=== PATIENT | male | born 1955 | race Caucasian/White ===

== ENCOUNTER 2019-02-28 08:17 | Emergency (ER) | payer BC, OTHER ==
[2019-02-28] MEDS ORDERED: ANTIVENIN,CROTALIDAE FAB(OVIN) INJ 1 VIAL IV ONE (08:37)
[2019-02-28] MEDS ORDERED: NORMAL SALINE 1000 ML 1,000 ML IV ONE (08:37)
[2019-02-28] MEDS ORDERED: TETANUS/DIPHTHERIA TOX-ADULT 0.5 ML SYR (>=7YO) IM ONE (08:37)
--- NOTE | 2019-02-28 08:53 | ER Document Report ---
ED General - General Chief Complaint: Snake Bite Stated Complaint: POSSIBLE SNAKE BITE Time Seen by Provider: 02/28/19 08:37 Primary Care Provider: BLAS GALLO MD [ACTIVE STAFF] - Follow up in 3-5 days TRAVEL OUTSIDE OF THE [place] IN LAST 30 DAYS: No - HPI Notes: Patient is a 63-year-old male that presents to the emergency department for chief complaint of copperhead bite to right ankle. Patient reports [place] and stepping on a copperhead. He states it appeared to be 2 to 2-1/2 feet in length. He states he has lived in the area his whole life and is sure it was a copperhead. He did kill the snake but did not bring it into the emergency room. Patient is complaining of a burning pain on the lateral aspect of his right ankle. He denies feeling lightheaded, nauseated or having any paresthesias and numbness. Patient denies history of bleeding disorders in the past and is not on any blood thinning medications. He has not done anything to the wound or taken any medication prior to coming to the emergency room. The bite occured at about 0800 this morning. Past Medical History: Hypertension Past Surgical History: Negative Social History: Occasional alcohol. Denies tobacco and drug use Family History: Reviewed and noncontributory for presenting illness Allergies: Reviewed, see documented allergy list. REVIEW OF SYSTEMS: CONSTITUTIONAL : No fever No chills No diaphoresis No recent illness EENT: No vision changes No congestion No sore throat CARDIOVASCULAR: No chest pain No palpitations RESPIRATORY: No shortness of breath No cough No difficulty breathing GASTROINTESTINAL: No abdominal pain No nausea No vomiting No diarrhea GENITOURINARY: No dysuria No hematuria No difficulty urinating MUSCULOSKELETAL: No back pain No leg pain No arm pain SKIN: No rashes Right ankle lesions LYMPHATIC: No swollen, enlarged glands. NEUROLOGICAL: No lightheadedness No headache No weakness No paresthesias PSYCHIATRIC: No anxiety No depression PHYSICAL EXAMINATION: Vital signs reviewed, nursing noted reviewed. GENERAL: Appears uncomfortable, well-nourished and in no acute distress. HEAD: Atraumatic, normocephalic. EYES: Eyes appear normal, extraocular movements intact, sclera anicteric, conjunctiva are normal. ENT: nares patent, oropharynx clear without exudates. Moist mucous membranes. NECK: Normal range of motion, supple without lymphadenopathy LUNGS: Breath sounds clear to auscultation bilaterally and equal. No wheezes rales or rhonchi. HEART: Tachycardic rate and regular rhythm without murmurs ABDOMEN: Soft, nontender, normoactive bowel sounds. No rebound, guarding, or rigidity. No masses appreciated. EXTREMITIES: Ecchymosis and edema to lateral right foot and ankle without involvement of the distal calf, pain with range of motion of right ankle. To pinpoint central lesions consistent with fang renner NEUROLOGICAL: No focal neurological deficits. Moves all extremities spontaneously Motor and sensory grossly intact on exam. PSYCH: Anxious, normal affect. SKIN: Warm, Dry, normal turgor, 2 pinpoint lesions to lateral right ankle consistent with snakebite fang renner, no active bleeding - Related Data Allergies/Adverse Reactions: No Known Allergies Allergy (Verified 02/28/19 08:21) Past Medical History - Social History Smoking Status: Never Smoker Family History: Reviewed & Not Pertinent Physical Exam - Vital signs Vitals: Temp Pulse Resp BP Pulse Ox 98.1 F 108 H 22 H 152/100 H 100 02/28/19 08:20 02/28/19 08:20 02/28/19 08:20 02/28/19 08:20 02/28/19 08:20 Course - Re-evaluation Re-evalutation: 02/28/19 09:52 Vitals reviewed. Nursing notes reviewed. Patient was tachycardic and tachypneic at presentation which put him in the moderate envenomation class. Initially patient was in agreement with receiving CroFab immediately upon arriv al in the ED which is why the antivenom was ordered. After further discussion with him and poison control we have collectively elected to monitor patient's edema and symptoms prior to administration of CroFab Laboratory 02/28/19 02/28/19 02/28/19 08:45 08:45 08:45 WBC 8.5 RBC 5.05 Hgb 15.1 Hct 44.9 MCV 89 MCH 30.0 MCHC 33.7 RDW 13.0 Plt Count 272 Seg Neutrophils % 56.6 Lymphocytes % 32.8 Monocytes % 8.3 Eosinophils % 1.7 Basophils % 0.6 Absolute Neutrophils 4.8 Absolute Lymphocytes 2.8 Absolute Monocytes 0.7 Absolute Eosinophils 0.1 Absolute Basophils 0.1 PT 12.8 INR 0.92 APTT 34.9 Fibrinogen 417 Fibrin Degrad Products <10 D-Dimer < 0.27 Sodium Potassium Chloride Carbon Dioxide Anion Gap BUN Creatinine Est GFR ( Amer) Est GFR (Non-Af Amer) Glucose Calcium Creatine Kinase Urine Color Urine Appearance Urine pH Ur Specific [place] Urine Protein Urine Glucose (UA) Urine Ketones Urine Blood Urine Nitrite Urine Bilirubin Urine Urobilinogen Ur Leukocyte Esterase Urine WBC (Auto) Urine Mucus (Auto) Urine Ascorbic Acid 02/28/19 02/28/19 08:45 09:45 WBC RBC Hgb Hct MCV MCH MCHC RDW Plt Count Seg Neutrophils % Lymphocytes % Monocytes % Eosinophils % Basophils % Absolute Neutrophils Absolute Lymphocytes Absolute Monocytes Absolute Eosinophils Absolute Basophils PT INR APTT Fibrinogen Fibrin Degrad Products D-Dimer Sodium 140.4 Potassium 4.6 Chloride 100 Carbon Dioxide 30 Anion Gap 10 BUN 19 Creatinine 0.79 Est GFR ( Amer) > 60 Est GFR (Non-Af Amer) > 60 Glucose 102 Calcium 9.5 Creatine Kinase 71 Urine Color YELLOW Urine Appearance CLEAR Urine pH 7.0 Ur Specific [place] 1.014 Urine Protein NEGATIVE Urine Glucose (UA) NEGATIVE Urine Ketones NEGATIVE Urine Blood SMALL H Urine Nitrite NEGATIVE Urine Bilirubin NEGATIVE Urine Urobilinogen NEGATIVE Ur Leukocyte Esterase NEGATIVE Urine WBC (Auto) 0 Urine Mucus (Auto) RARE Urine Ascorbic Acid NEGATIVE . He will receive 1 hour measurements of his foot, calf, and thigh as well as close monitoring of his vitals. Blood work has been obtained. If patient's edema progresses into his calf or if he develops more systemic symptoms antivenom will be initiated. 02/28/19 10:30 Patient was evaluated at 0955 and did have slight proximal progression of the edema, a line was demarcated. At 1030 I reevaluated him and he has not had any progression of the edema past the line from 0955. Patient's pain is tolerable with Motrin. His lab work is unremarkable. We will continue to monitor. 02/28/19 11:07 Patient's 3-hour measurements show decreased edema in the calf and foot with negligible change in the ankle. He is not having progression of the edema into the calf and currently not requiring CroFab. We will continue to monitor the edema. Plan to repeat blood work at 1500 02/28/19 12:11 Patient reevaluated, pain is well controlled, edema appears to have halted. We will continue to monitor. 02/28/19 13:52 Patient reevaluated. He has had no further progression of the edema. He does report the pain has increased and is now sharp and throbbing. Patient was ordered a dose of morphine for further pain management. He has repeat lab work in 1 hour. If lab work is normal and no further edema occurs plan to discharge home at 4 PM for close outpatient follow-up. - Vital Signs Vital signs: Temp Pulse Resp BP Pulse Ox 98.2 F 108 H 16 138/91 H 97 02/28/19 14:01 02/28/19 08:20 02/28/19 15:01 02/28/19 15:01 02/28/19 15:01 - Laboratory Result Diagrams: 02/28/19 08:45 02/28/19 08:45 Laboratory results interpreted by me: 02/28/19 09:45 Urine Blood SMALL H Critical Care Note - Critical Care Note Total time excluding time spent on procedures (mins): 50 Comments: Critical care time 50 exclusive from separate billable procedures for a patient requiring complex medical decision making, and high potential for clinical deterioration. Time spent obtaining history from patient or surrogate, discussions with consultants, development of treatment plan with patient or surrogate, evaluation of patient's response to treatment, examination of patient, ordering and performing treatments and interventions, ordering and review of laboratory studies, re-evaluation of patient's condition, ordering and review of radiographic studies and review of old charts Discharge - Discharge Clinical Impression: Snake bite Qualifiers: Encounter type: initial encounter Qualified Code(s): W59.11XA - Bitten by nonvenomous snake, initial encounter Condition: Stable Disposition: HOME, SELF-CARE Instructions: Snakebites ([facility]) Additional Instructions: Please return to the emergency department if you have any worsening, or concern of your symptoms. Please return to the emergency department if you develop chest pain, difficulty breathing, severe abdominal pain, or ongoing vomiting. Please follow-up with your primary care physician in 2-3 days and any other recommended physicians. If prescribed, take all medications as directed. If you have any questions or concerns do not hesitate to return the emergency department for evaluation. Keep the bite site clean by washing with soapy water 2-3 times a day. Monitor for signs of infection which would be increased pain, redness and swelling Prescriptions: Hydrocodone/Acetaminophen [[place] 5-325 mg Tablet] 1 tab PO Q6 #10 tablet Referrals: BLAS GALLO MD [ACTIVE STAFF] - Follow up in 3-5 days
[2019-02-28 09:20] LABS: INTERNATIONAL RATION (INR) 0.92; PROTHROMBIN TIME 12.8 SEC (11.4-15.4)
[2019-02-28 09:21] LABS: FIBRINOGEN 417 mg/dL (209-497); PARTIAL THROMBOPLASTIN TIME 34.9 SEC (23.5-35.8)
[2019-02-28 09:30] LABS: ABSOLUTE BASOPHILS # (AUTO) 0.1 10^3/uL (0.0-0.2); ABSOLUTE EOSINOPHILS # (AUTO) 0.1 10^3/uL (0.0-0.6); ABSOLUTE LYMPHOCYTES (AUTO) 2.8 10^3/uL (0.5-4.7); ABSOLUTE MONOCYTES (AUTO) 0.7 10^3/uL (0.1-1.4); ABSOLUTE NEUT (AUTO) 4.8 10^3/uL (1.7-8.2); BASOPHILS % (AUTO) 0.6 % (0-2); EOSINOPHILS % (AUTO) 1.7 % (0-6); HEMATOCRIT 44.9 % (37.9-51.0); HEMOGLOBIN 15.1 g/dL (13.5-17.0); LYMPHOCYTES % (AUTO) 32.8 % (13-45); MEAN CORPUSCULAR HGB CONC 33.7 g/dL (32.0-36.0); MEAN CORPUSCULAR VOLUME 89 fl (80-97); MONOCYTES % (AUTO) 8.3 % (3-13); PLATELET COUNT 272 10^3/uL (150-450); RED BLOOD COUNT 5.05 10^6/uL (4.35-5.55); SEGMENTED NEUTROPHILS % (AUTO) 56.6 % (42-78); TOTAL CELLS COUNTED % (AUTO) 100 %; WHITE BLOOD COUNT 8.5 10^3/uL (4.0-10.5)
[2019-02-28 09:32] LABS: ANION GAP 10 (5-19); BLOOD UREA NITROGEN 19 mg/dL (7-20); CALCIUM 9.5 mg/dL (8.4-10.2); CARBON DIOXIDE 30 mmol/L (22-30); CHLORIDE 100 mmol/L (98-107); CREATINE KINASE 71 U/L (55-170); GLUCOSE 102 mg/dL (75-110); POTASSIUM 4.6 mmol/L (3.6-5.0); SODIUM 140.4 mmol/L (137-145)
[2019-02-28 09:43] LABS: D-DIMER < 0.27 ug/mL (0.00-0.50)
[2019-02-28] MEDS ORDERED: IBUPROFEN 600 MG TABLET PO ONE (09:59)
[2019-02-28 10:31] LABS: APPEARANCE,URINE CLEAR; BILIRUBIN,URINE NEGATIVE (NEGATIVE); COLOR,URINE YELLOW; GLUCOSE, URINE NEGATIVE (NEGATIVE); KETONES,URINE NEGATIVE (NEGATIVE); LEUKOCYTE ESTERASE,URINE NEGATIVE (NEGATIVE); NITRITE,URINE NEGATIVE (NEGATIVE); PROTEIN,URINE NEGATIVE (NEGATIVE); URINE SPECIFIC GRAVITY 1.014; UROBILINOGEN,URINE NEGATIVE mg/dL (<2.0)
[2019-02-28] MEDS ORDERED: MORPHINE SULFATE 10 MG/ML INJ IV ONE (13:36)
[2019-02-28 15:30] LABS: FIBRINOGEN 362 mg/dL (209-497); INTERNATIONAL RATION (INR) 0.99; PROTHROMBIN TIME 13.6 SEC (11.4-15.4)
[2019-02-28 15:57] VITALS: BP 138/91
[2019-02-28] MEDS ORDERED: OXYCODONE-ACETAMINOPHEN 5-325 MG TABLET PO ONE (16:18)
== END 2019-02-28 16:30 | disposition home or self-care (01) ==
LOC: ER 08:17
DX: T63.091A Toxic effect of venom of other snake, accidental (unintentional), initial encounter (principal); M25.571 Pain in right ankle and joints of right foot; I10 Essential (primary) hypertension
CPT/HCPCS: 99285; 96361; 90471; 96374; 36415; 82550; 85025; 85384; 85362; 85610; 85730; 83874; 80048; 81001; 85379; 90714; J2270; J7030